=== PATIENT | male | born 1990 | race Hispanic/Latino ===

== ENCOUNTER 2018-09-02 07:08 | Emergency (ER) | payer OTHER ==
[2018-09-02 07:52] LABS: Absolute Lymphocytes (CBC) 1.4 K/uL (0.7-4.9); Absolute Monocytes 0.4 K/uL (0.1-1.3); Basophils % 0.5 % (0-1.3); Eosinophils % 1.9 % (0-4.4); Hematocrit 44.8 % (39.6-49.0); MPV 9.9 fL (7.6-11.3); RBC Red Blood Cell Count 4.62 M/uL (4.33-5.43)
[2018-09-02] MEDS ORDERED: MAGNE/ALUM HYDROXD 30 ML UCUP ONE (08:01)
[2018-09-02] MEDS ORDERED: FAMOTIDINE 20 MG/2 ML VIAL IV ONE (08:01)
[2018-09-02] MEDS ORDERED: LIDOCAINE VISCOUS 2% SOLN 15 ML UDC ONE (08:01)
[2018-09-02 08:12] LABS: Albumin 4.1 g/dL (3.4-5.0); Bilirubin Direct 0.1 mg/dL (0-0.2); Bilirubin Total 0.4 mg/dL (0.2-1.0); Potassium 3.8 mmol/L (3.5-5.1); Protein, Total 7.6 g/dL (6.4-8.2)
--- NOTE | 2018-09-02 08:33 | ER ---
Nurse's Notes [facility] Name: Daniele Harris Age: 28 yrs Sex: Male : 1990 Arrival Date: 09/02/2018 Time: 07:11 Bed 20 Private MD: Diagnosis: Upper abdominal pain, unspecified Presentation: 09/02 07:28 Presenting complaint: Intermittent upper abdominal pain x 1 week. Transition of care: hb patient was not received from another setting of care. Onset of symptoms was September 02, 2018. Risk Assessment: Do you want to hurt yourself or someone else? Patient reports no desire to harm self or others. Initial Sepsis Screen: Does the patient meet any 2 criteria? No. Patient's initial sepsis screen is negative. Does the patient have a suspected source of infection? No. Patient's initial sepsis screen is negative. Care prior to arrival: None. 07:28 Method Of Arrival: Ambulatory 07:28 Acuity: JANEL 3 hb Historical: - Allergies: 07:29 No Known Allergies; hb - Home Meds: 07:29 None [Active]; hb - PMHx: 07:29 None; hb - PSHx: 07:29 None; hb - Immunization history:: Adult Immunizations up to date. - Social history:: Smoking status: Patient uses tobacco products, smokes one-half pack cigarettes per day. - Ebola Screening: : No symptoms or risks identified at this time. Screenin:29 Abuse screen: Denies threats or abuse. Denies injuries from another. Nutritional hb screening: No deficits noted. Tuberculosis screening: No symptoms or risk factors identified. Fall Risk None identified. Assessment: 07:34 General: Appears in no apparent distress. comfortable, Behavior is calm, cooperative. em Pain: Complains of pain in epigastric area, right upper quadrant and left upper quadrant Pain currently is 4 out of 10 on a pain scale. Pain began 1 week Is intermittent. Neuro: Level of Consciousness is awake, alert, obeys commands, Oriented to person, place, time, situation. Cardiovascular: Capillary refill < 3 seconds Patient's skin is warm and dry. Respiratory: Airway is patent Respiratory effort is even, unlabored, Respiratory pattern is regular, symmetrical. GI: Abdomen is flat, Bowel sounds present X 4 quads. Abd is soft X 4 quads Abdomen is tender to palpation in epigastric area, right upper quadrant and left upper quadrant Patient currently denies diarrhea, nausea, vomiting. : No signs and/or symptoms were reported regarding the genitourinary system. EENT: No signs and/or symptoms were reported regarding the EENT system. Derm: Skin is intact, is healthy with good turgor, Skin is pink, warm \T\ dry. Musculoskeletal: Range of motion: intact in all extremities. 08:36 Reassessment: Patient appears in no apparent distress at this time. Patient and/or em family updated on plan of care and expected duration. Pain level reassessed. Patient is alert, oriented x 3, equal unlabored respirations, skin warm/dry/pink. pain is unchanged, provider at bedside, new medication orders received. 09:06 Reassessment: Patient appears in no apparent distress at this time. Patient and/or em family updated on plan of care and expected duration. Pain level reassessed. Patient is alert, oriented x 3, equal unlabored respirations, skin warm/dry/pink. rates pain 2/10 Patient states feeling better. Vital Signs: 07:27 BP 151 / 97; Pulse 73; Resp 16; Temp 98.6; Pulse Ox 100% on R/A; Pain 4/10; hb 08:35 BP 136 / 103; Pulse 70; Resp 18; Pulse Ox 100% on R/A; Pain 4/10; em ED Course: 07:11 Patient arrived in ED. mr 07:11 Yolande Delacruz [facility]-C [facility]. kb 07:11 Sam Vazquez MD is Attending Physician. kb 07:28 Triage completed. hb 07:28 Arm band placed on. hb 07:31 Philip Correa LVN is Primary Nurse. em 07:44 Patient has correct armband on for positive identification. Bed in low position. Call em light in reach. Pulse ox on. NIBP on. 07:44 Initial lab(s) drawn, by me, sent to lab. Inserted saline lock: 20 gauge in right em antecubital area, using aseptic technique. Blood collected. 09:06 No provider procedures requiring assistance completed. IV discontinued, intact, em bleeding controlled, No redness/swelling at site. Pressure dressing applied. Administered Medications: 07:55 Drug: GI Cocktail without - (Maalox Suspension 30 ml, Lidocaine Liquid 2 % 15 em ml) Route: PO; 08:35 Follow up: Response: No adverse reaction; Pain is unchanged, physician notified em 07:56 Drug: Pepcid 20 mg Route: IVP; Site: right antecubital; hb 08:35 Follow up: Response: No adverse reaction; Pain is unchanged, physician notified em 08:40 Drug: Bentyl 20 mg Route: PO; em 09:08 Follow up: Response: No adverse reaction; Pain is decreased em 08:40 Drug: TORadol 30 mg Route: IVP; Site: right antecubital; hb 09:08 Follow up: Response: No adverse reaction; Pain is decreased em Outcome: 08:33 Discharge ordered by . kb 09:06 Discharged to home ambulatory, with family. em 09:06 Condition: good 09:06 Discharge instructions given to patient, family, Instructed on discharge instructions, follow up and referral plans. medication usage, Demonstrated understanding of instructions, follow-up care, medications, Prescriptions given X 2. 09:08 Patient left the ED. em Signatures: Yolande Delacruz, TERI-C TERI-Mary Knight Edgar, DIRECTOR DIABETES DIRECTOR DIABETES em Grace Lr, RN RN
--- NOTE | 2018-09-02 08:33 | EDPHYS ---
Physician Documentation [facility] Name: Daniele Harris Age: 28 yrs Sex: Male : 1990 Arrival Date: 09/02/2018 Time: 07:11 Bed 20 Private MD: ED Physician Sam Vazquez HPI: 09/02 07:35 This 28 yrs old Male presents to ER via Ambulatory with complaints of kb Abdominal Pain. 07:35 The patient presents with abdominal pain in the upper abdomen. Onset: The kb symptoms/episode began/occurred 1 week(s) ago. The symptoms do not radiate. Associated signs and symptoms: Pertinent positives: nausea and vomiting, Pertinent negatives: anorexia, blood in stools, chest pain, constipation, diarrhea, dysuria, fever, headache, hematuria, palpitations, shortness of breath, testicular pain, vomiting blood. The symptoms are described as burning, intermittent. Modifying factors: The symptoms are alleviated by nothing, the symptoms are aggravated by nothing. Severity of pain: At its worst the pain was moderate in the emergency department the pain is unchanged. The patient has not experienced similar symptoms in the past. The patient has not recently seen a physician. PT reports intermittent abd burning for one week, came in today because the pain has been constant for 24 hours and he couldn't really sleep last night. States he only have "the regular vomiting from drinking." Denies nausea and vomiting when not drinking alcohol. Historical: - Allergies: 07:29 No Known Allergies; hb - Home Meds: 07:29 None [Active]; hb - PMHx: 07:29 None; hb - PSHx: 07:29 None; hb - Immunization history:: Adult Immunizations up to date. - Social history:: Smoking status: Patient uses tobacco products, smokes one-half pack cigarettes per day. - Ebola Screening: : No symptoms or risks identified at this time. ROS: 07:35 Constitutional: Negative for fever, chills, and weight loss, ENT: Negative for injury, kb pain, and discharge, Neck: Negative for injury, pain, and swelling, Cardiovascular: Negative for chest pain, palpitations, and edema, Respiratory: Negative for shortness of breath, cough, wheezing, and pleuritic chest pain, Back: Negative for injury and pain, : Negative for injury, bleeding, discharge, and swelling, MS/Extremity: Negative for injury and deformity, Skin: Negative for injury, rash, and discoloration, Neuro: Negative for headache, weakness, numbness, tingling, and seizure. 07:35 Abdomen/GI: Positive for abdominal pain, vomiting, Negative for diarrhea, constipation, abdominal cramps, abdominal distension, anorexia. Exam: 07:35 Constitutional: This is a well developed, well nourished patient who is awake, alert, kb and in no acute distress. Head/Face: Normocephalic, atraumatic. ENT: Nares patent. No nasal discharge, no septal abnormalities noted. Tympanic membranes are normal and external auditory canals are clear. Oropharynx with no redness, swelling, or masses, exudates, or evidence of obstruction, uvula midline. Mucous membranes moist. Neck: Trachea midline, no thyromegaly or masses palpated, and no cervical lymphadenopathy. Supple, full range of motion without nuchal rigidity, or vertebral point tenderness. No Meningismus. Chest/axilla: Normal chest wall appearance and motion. Nontender with no deformity. No lesions are appreciated. Cardiovascular: Regular rate and rhythm with a normal S1 and S2. No gallops, murmurs, or rubs. Normal PMI, no JVD. No pulse deficits. Respiratory: Lungs have equal breath sounds bilaterally, clear to auscultation and percussion. No rales, rhonchi or wheezes noted. No increased work of breathing, no retractions or nasal flaring. Abdomen/GI: Soft, non-tender, with normal bowel sounds. No distension or tympany. No guarding or rebound. No evidence of tenderness throughout. Back: No spinal tenderness. No costovertebral tenderness. Full range of motion. Skin: Warm, dry with normal turgor. Normal color with no rashes, no lesions, and no evidence of cellulitis. MS/ Extremity: Pulses equal, no cyanosis. Neurovascular intact. Full, normal range of motion. Neuro: Awake and alert, GCS 15, oriented to person, place, time, and situation. Cranial nerves II-XII grossly intact. Motor strength 5/5 in all extremities. Sensory grossly intact. Cerebellar exam normal. Normal gait. Vital Signs: 07:27 BP 151 / 97; Pulse 73; Resp 16; Temp 98.6; Pulse Ox 100% on R/A; Pain 4/10; hb 08:35 BP 136 / 103; Pulse 70; Resp 18; Pulse Ox 100% on R/A; Pain 4/10; em MDM: 07:23 Patient medically screened. gretta 07:35 Data reviewed: vital signs, nurses notes. Data interpreted: Pulse oximetry: on room air kb is 100 %. Interpretation: normal. 08:30 Counseling: I had a detailed discussion with the patient and/or guardian regarding: the kb historical points, exam findings, and any diagnostic results supporting the discharge/admit diagnosis, lab results, the need for outpatient follow up, a family practitioner, a automobile parker, to return to the emergency department if symptoms worsen or persist or if there are any questions or concerns that arise at home. 09/02 07:27 Order name: Hepatic Function kb 09/02 07:27 Order name: Basic Metabolic Panel kb 09/02 07:27 Order name: CBC with Diff kb 09/02 07:27 Order name: Lipase kb 09/02 08:01 Order name: CBC with Automated Diff; Complete Time: 08:43 EDMS 09/02 08:12 Order name: Basic Metabolic Panel; Complete Time: 08:14 EDMS 09/02 07:27 Order name: IV Saline Lock; Complete Time: 07:44 kb 09/02 08:12 Order name: Liver (Hepatic) Function; Complete Time: 08:14 EDMS 09/02 08:12 Order name: Lipase; Complete Time: 08:14 EDMS 09/02 08:37 Order name: CBC Smear Scan; Complete Time: 08:43 EDMS 09/02 07:27 Order name: Labs collected and sent; Complete Time: 07:44 kb Administered Medications: 07:55 Drug: GI Cocktail without - (Maalox Suspension 30 ml, Lidocaine Liquid 2 % 15 em ml) Route: PO; 08:35 Follow up: Response: No adverse reaction; Pain is unchanged, physician notified em 07:56 Drug: Pepcid 20 mg Route: IVP; Site: right antecubital; hb 08:35 Follow up: Response: No adverse reaction; Pain is unchanged, physician notified em 08:40 Drug: Bentyl 20 mg Route: PO; em 09:08 Follow up: Response: No adverse reaction; Pain is decreased em 08:40 Drug: TORadol 30 mg Route: IVP; Site: right antecubital; hb 09:08 Follow up: Response: No adverse reaction; Pain is decreased em Disposition: 09/03 07:47 Co-signature as Attending Physician, Sam Vazquez MD I agree with the assessment and gretta plan of care. Disposition: 09/02/18 08:33 Discharged to Home. Impression: Upper abdominal pain, unspecified. - Condition is Stable. - Discharge Instructions: Abdominal Pain, Adult, [id number]. - Prescriptions for Bentyl 20 mg Oral Tablet - take 1 tablet by ORAL route every 6 hours As needed; 20 tablet. Zofran 4 mg Oral Tablet - take 1 tablet by ORAL route every 6 hours As needed; 20 tablet. - Medication Reconciliation Form, Thank You Letter, Antibiotic Education, Prescription Opioid Use form. - Follow up: Emergency Department; When: As needed; Reason: Worsening of condition. Follow up: Private Physician; When: 2 - 3 days; Reason: Recheck today's complaints, Continuance of care, Re-evaluation by your physician. Signatures: Dispatcher [employer] EDYolande Aparicio, COLLAR SETTER-C COLLAR SETTER-Ckb Sam Vazquez MD MD cha Munoz, Edgar, LIFE SKILLS TRAINER LIFE SKILLS TRAINER em Grace Lr, RN RN hb Corrections: (The following items were deleted from the chart) 09/02 09:08 08:33 09/02/2018 08:33 Discharged to Home. Impression: Upper abdominal pain, em unspecified. Condition is Stable. Forms are Medication Reconciliation Form, Thank You Letter, Antibiotic Education, Prescription Opioid Use. Follow up: Emergency Department; When: As needed; Reason: Worsening of condition. Follow up: Private Physician; When: 2 - 3 days; Reason: Recheck today's complaints, Continuance of care, Re-evaluation by your physician. kb
[2018-09-02 08:37] LABS: Blood Morphology Comment NOT SEEN (NOT SEEN); Platelet Estimate ADEQ; Platelets, Giant PRESENT; Urine White Blood Cell Casts SCAN
[2018-09-02] MEDS ORDERED: KETOROLAC 30 MG/ML INJ ONE (08:38)
[2018-09-02] MEDS ORDERED: DICYCLOMINE HCL 10 MG CAP ONE (08:42)
== END 2018-09-02 09:08 | disposition home or self-care (01) ==
LOC: ER 07:08
DX: R10.10 Upper abdominal pain, unspecified (principal); R11.2 Nausea with vomiting, unspecified; F17.210 Nicotine dependence, cigarettes, uncomplicated
CPT/HCPCS: 36415; 80048; 80076; 83690; 85025; 96374; 96375; 99284

== ENCOUNTER → 2023-09-03 | Emergency (ER) | payer SELFPAY ==
[~2023-09-03] MED LIST: NA CHLORIDE 0.9% 1,000 ML ONE; POTASSIUM 25 MEQ EFFERV TAB ONE
--- OUTSIDE RECORDS SUMMARY | 2023-09-03 20:54 | XMS REPORT | Continuity of Care Document ---
Author Name Unknown Address [address] [facility] [address] [place] [address] [facility] thconnect Address [address] [facility] [address] [place] [address] Care Team Providers Care Tab Cutter Name Role Phone PCP, PATIENT DOES NOT HAVE A Primary Care Physic lucian Unavailable ROSA ISELA TONY Attending Clinician Unavailable Rosa Isela Tony NP Attending Clinician [phone] ROSA ISELA TONY Admitting Clinician Unavailable Allergies, Adverse Reactions, Alerts Allergy Name Allergy Type Status Severity Reaction(s) Onset Date Inactive Date Treating Clinician Comments Source NO KNOWN ALLERGIE S Drug Class Active [facility] Social History Social Habit Start Date Stop Date Quantity Comments Source Sexual orientation U [facility] Sex Assigned At 1990 00:00:00 1990 00:00:00 [facility] Smoking Status Start Date Stop Date Source Tobacco smoking consumption unknown [facility] Medications Ordered Medication Name Filled Medication Name Start Date Stop Date Current Medication? Ordering Clinician Indication Dosage Frequency Signature (SIG) Comments Components Source levoFLOXaci n (LEVAQUIN) tablet 750 mg 2022-07 02:15: 00 06-12 01:32 :00 No 750mg 750 mg, Oral, ONCE NOW, 1 dose, On 06/11/23 at 2015, CARL
Re ason for Anti-Infec tive: Documented Infection< br>Documen arnol Infection Site: Respirator y
Durat ion of Therapy: Other (see Comments) [facility] methylPREDN ISolone sodium succinate (SOLU-MEDRO L) injection 125 mg 2022-07 00:00: 00 Yes 125mg 125 mg, Intravenou s, Q6H, First dose on Mon06/11/23 at 1800, Until Discontinu ed, Routine [facility] ipratropium -albuteroL (DUONEB) 0.5 mg-3 mg(2.5 mg base)/3 mL nebulizer solution 3 mL 2022-07 00:00: 00 06-12 00:29 :00 No 3mL 3 mL, Inhalation , ONCE NOW, 1 dose, On Mon06/11/23 at 1800, Routine [facility] albuterol 90 mcg/actuati on inhaler 2022-07 00:00: 00 Yes [id number] 2{puff} Inhale 2 Puffs every 4 (four) hours as needed for Wheezing or Shortness of Breath. [facility] benzonatate 100 mg capsule 2022-07 00:00: 00 Yes [id number] 200mg Take 2 capsules by mouth 3 (three) times daily as needed for Cough. [facility] levoFLOXaci n 750 mg tablet 2022-07 00:00: 00 06-19 05:59 :00 Yes [id number] 750mg Take 1 tablet by mouth every 24 (twenty-fo ur) hours for 7 days. [facility] predniSONE 20 mg tablet 2022-07 00:00: 00 06-17 05:59 :00 Yes [id number] 20mg Take 1 tablet by mouth in the morning and 1 tablet in the evening. Do all this for 5 days. [facility] Vital Signs Vital Name Observation Time Observation Value Comments S emerson Systolic blood pressure 2023-06-12 01:37:00 138 mm[Hg] [facility] Diastolic blood pressure 2023-06-12 01:37:00 101 mm[Hg] [place] [facility] Heart rate 2023-06-12 01:37:00 91 /min [facility] Body temperature 2023-06-12 01:37:00 36.72 Darlyn [facility] Respiratory rate 2023-06-12 01:37:00 23 /min [facility] Oxygen saturation in Arterial blood by Pulse oximetry 2023-06-12 01:37:00 97 /min [facility] Body height 2023-06-11 23:01:00 180.3 cm [facility] Body weight 2023-06-11 23:01:00 98.431 kg [facility] BMI 2023-06-11 23:01:00 30.27 kg/m2 [facility] Procedures Procedure Date / Time Performed Performing Clinicia n Source EKG-12 LEAD 2023-06-12 01:35:02 Rosa Isela Tony [facility] LIPASE 2023-06-11 23:43:00 Rosa Isela Tony [facility] MAGNESIUM 2023-06-11 23:43:00 Rosa Isela Tony [facility] TROPONIN I 2023-06-11 23:43:00 Rosa Isela Tony [facility] COMP. METABOLIC PANEL ([id number]) 2023-06-11 23:43:00 Rosa Isela Tony [facility] CBC WITH DIFF 2023-06-11 23:43:00 Rosa Isela Tony [facility] RAPID INFLUENZA A/B 2023-06-11 23:43:00 Rosa Isela Tony [facility] N-TERMINAL PRO-BNP 2023-06-11 23:43:00 Rosa Isela Tony [facility] COVID-19 (ID NOW RAPID TESTING) 2023-06-11 23:43:00 Rosa Isela Tony [facility] ASSIGNMENT OF BENEFITS 2023-06-11 23:29:51 Docto r Unassigned, Laurier [facility] XR CHEST 1 VW 2023-06-11 23:17:00 Rosa Isela Tony [facility] NOTICE OF PRIVACY PRACTICES 2023-06-11 22:48:12 Doctor Unassigned, Laurier [facility] Encounters Start Date/Time End Date/Time Encounter Type Admission Type Attending Clinicians Care Facility Care Department Encounter ID Source 2023-06-11 17:03:00 2023-06-11 19:40:00 Emergency X ROSA ISELA TONY [facility] ERT [id number] [facility] 2023-06-11 17:03:00 2023-06-11 19:40:00 Emergency Rosa Isela Tony [facility] [id number] [facility] Results Test Description Test Time Test Comments Results Result Co mments Source [id number] 00:23:59* Test Item Value Reference Range Interpretation Comme nts TROPONIN I (test code = 5196977106) 0.015 ng/mL <=0.034 SYLVIA (test code = SYLVIA) Reference (Normal) Range (defined by the 99th percentile reference limit): <= 0.034 ng/mL Note: Cardiac troponin begins to rise 3-4 hours after the onset of ischemia. Repeat in 4-6 hours if the sample was drawn within 3-4 hours of the onset of the symptom and found normal. Diagnosis of myocardial injury is made with acute changes in cTn concentrations with at least one serial sample above the 99th percentile upper reference limit (URL), taken together with the patient's clinical presentation. Biotin has been reported to cause a negative bias, interpret results relative to patient's use of biotin. Lab Interpretation (test code = 53682-2) [facility] (89325)2023-06-12 00:13:36* Test Item Value Reference Range Interpretation Comme nts NA (test code = 3341521350) 139 mmol/L 135-145 K (test code = 5315410218) 4.3 mmol/L 3.5-5.0 CL (test code = 4022659288) 102 mmol/L 98-108 CO2 TOTAL (test code = 5372608919) 29 mmol/L 23-31 AGAP (test code = 0413079609) 8 2-16 BUN (test code = 0713081060) 15 mg/dL 7-23 GLUCOSE (test code = 3955356374) 109 mg/dL 70-110 CREATININE (test code = 0021538600) 0.96 mg/dL 0.60-1.25 TOTAL BILI (test code = 8985052420) 0.7 mg/dL 0.1-1.1 CALCIUM (test code = 4949513839) 9.8 mg/dL 8.6-10.6 T PROTEIN (test code = 6549920123) 8.7 g/dL 6.3-8.2 H ALBUMIN (test code = 6174591042) 5.0 g/dL 3.5-5.0 ALK PHOS (test code = 7580197104) 90 U/L 34-122 ALTv (test code = 1742-6) 69 U/L 5-50 H AST(SGOT) (test code = 6804919868) 36 U/L 13-40 eGFR (test code = 20166-4) 107.0 mL/min/1.73m2 CKD-EPI eGFR (2020). Assuming creatinine has been stable day-to-day for at least three months, the eGFR indicates Category G1 (>= 90 mL/min/1.73 m2) Lab Interpretation (test code = 53759-1) [facility]normal [facility] 00:13:36* Test Item Value Reference Range Interpretation Comme nts MAGNESIUM (test code = 8633498111) 1.9 mg/dL 1.7-2.4 Lab Interpretation (test cod e = 57904-9) [facility] 00:13:16* Test Item Value Reference Range Interpretation Comme nts LIPASE (test code = 6896508642) 68 U/L 0-220 Lab Interpretation (test cod e = 09606-1) [facility] [id number] 00:00:35* Test Item Value Reference Range Interpretation Comme nts WBC (test code = 6690-2) 9.55 See_Comment [Automated messa ge] The system which generated this result transmitted reference range: 4.20 - 10.70 10*3/?L. The reference range was not used to interpret this result as normal/abnormal. RBC (test code = 789-8) 4.89 See_Comment [Automated messa ge] The system which generated this result transmitted reference range: 4.26 - 5.52 10*6/?L. The reference range was not used to interpret this result as normal/abnormal. HGB (test code = 718-7) 16.8 g/dL 12.2-16.4 H HCT (test code = 4544-3) 46.2 % 38.4-49.3 MCV (test code = 787-2) 94.5 fL 81.7-95.6 MCH (test code = 785-6) 34.4 pg 26.1-32.7 H MCHC (test code = 786-4) 36.4 g/dL 31.2-35.0 H RDW-SD (test code = 86298-6) 39.1 fL 38.5-51.6 RDW-CV (test code = 788-0) 11.4 % 12.1-15.4 L PLT (test code = 777-3) 244 See_Comment [Automated messa ge] The system which generated this result transmitted reference range: 150 - 328 10*3/?L. The reference range was not used to interpret this result as normal/abnormal. MPV (test code = 58264-4) 11.5 fL 9.8-13.0 NRBC/100 WBC (test code = 8082962761) 0.0 See_Comment [Automated [employer] ssage] The system which generated this result transmitted reference range: 0.0 - 10.0 /100 WBCs. The reference range was not used to interpret this result as normal/abnormal. NRBC x10^3 (test code = 1869837216) See_Comment [Automated GMIa ge] The system which generated this result transmitted reference range: 10*3/?L. The reference range was not used to interpret this result as normal/abnormal. GRAN MAT (NEUT) % (test code = 770-8) 54.1 % IMM GRAN % (test code = 6861690648) 0.20 % LYMPH % (test code = 736-9) 28.7 % MONO % (test code = 5905-5) 6.4 % EOS % (test code = 713-8) 9.7 % BASO % (test code = 706-2) 0.9 % GRAN MAT x10^3(ANC) (test code = 7302009028) 5.16 10*3/uL 1.99-6.95 IMM GRAN x10^3 (test code = 9306685879) 0.00-0.06 LYMPH x10^3 (test code = 731-0) 2.74 10*3/uL 1.09-3.23 MONO x10^3 (test code = 742-7) 0.61 10*3/uL 0.36-1.02 EOS x10^3 (test code = 711-2) 0.93 10*3/uL 0.06-0.53 H BASO x10^3 (test code = 704-7) 0.09 10*3/uL 0.01-0.09 Lab Interpretation (test code = 00677-1) [facility]normal [facility], [id number] 00:29:17* Test Item Value Reference Range Interpretation Comme nts HEPATITIS A IgM (test code = 12236) NON-REACTIVE NON-REACTIVE HEPATITIS B CORE IgM (test code = 4644) NON-REACTIVE NON-REACTIVE HEPATITIS B SURF AG (test code = 2739) NON-REACTIVE NON-REACTIVE HEPATITIS C ANTIBODY (test code = 4675) NON-REACTIVE NON-REACTIVE INTERPRETATION HEPATITIS A: (test code = 2552) (NOTE) Hepatitis A serology shows no evidence of acute hepatitis A. INTERPRETATION HEPATITIS B: (test code = 72384) (NOTE) Hepatitis B serology shows no evidence of acute hepatitis B andno indication of exposure to hepatitis B virus in the previous marty eight months. INTERPRETATION HEPATITIS C: (test code = 41577) (NOTE) Hepatitis C serology shows no evidence of exposure to hepatitisC virus at this time. It can take up to 12 months after exposure tothe hepatitis C virus for antibodies to become detectable in the blood in certain patients. HIV 1/2 4TH GEN, RFLX [id number] 00:29:17* Test Item Value Reference Range Interpretation Comme nts HIV 1/2 4TH GEN, RFLX CONF ( test code = 3514) NON-REACTIVE NON-REACTIVE [id number] 00:12:48* Test Item Value Reference Range Interpretation Comme nts RPR RESULT (test code = 3501) NON-REACTIVE NON-REACTIVE RPR TITER (test code = 3500) NOT INDIC. TITER NOT INDIC. CT/NG, NAAT, [id number] 16:51:40* Test Item Value Reference Range Interpretation Comme nts GONORRHEA, NAAT (test code = 58698) NEGATIVE NEGATIVE IMPORTANT NO LAKISHA: SEE ANNOUNCEMENT AT [email or web address] Note: Assay methodology is nucleic acid amplification by newborn hearing screener mediated amplification (TMA) utilizing the Aptima Combo 2 Assay. CHLAMYDIA, NAAT (test code = 24180) NEGATIVE NEGATIVE IMPORTANT NO LAKISHA: SEE ANNOUNCEMENT AT [email or web address] Note: Assay methodology is nucleic acid amplification by newborn hearing screener mediated amplification (TMA) utilizing the Aptima Combo 2 Assay. UNLESS OTHERWISE INDICATED, ALL TESTING PERFORMED [facility] [address] [place] [address] CHARGE MASTER ANALYST: RASHAWN AARON M.D. [place] NUMBER [id number] [facility] [place]. [id number]
[2023-09-03 22:39] LABS: Absolute Lymphocytes (CBC) 1.9 K/uL (0.7-4.9); Hematocrit 42.1 % (39.6-49.0); Lymphocytes % 28.8 % (15.3-44.8); MCV 96.4 fL (80-100); MPV 9.7 fL (7.6-11.3); Platelets 234 thou/uL (152-406); RBC Red Blood Cell Count 4.37 M/uL (4.33-5.43)
[2023-09-03 23:02] LABS: Barbiturates NEGATIVE (NEGATIVE); Benzodiazepines NEGATIVE (NEGATIVE); Cocaine NEGATIVE (NEGATIVE); METHAMPHETAM POSITIVE (NEGATIVE); Methadone NEGATIVE (NEGATIVE); Opiates NEGATIVE (NEGATIVE); Phencyclidine NEGATIVE (NEGATIVE); THC Cannibis POSITIVE (NEGATIVE)
[2023-09-03 23:05] LABS: Protime INR 0.97
[2023-09-03 23:09] LABS: Specific Gravity 1.025 (1.005-1.030); Urine Bacteria None Seen /HPF (<20); Urine Bilirubin NEGATIVE (Negative); Urine Blood Negative (Negative); Urine Clarity Clear (Clear); Urine Color Light-Yellow (Yellow); Urine Glucose NEGATIVE (Negative); Urine Protein TRACE (Negative); Urine RBC <5 /HPF (None Seen); Urine Urobilinogen Normal (Normal); Urine pH 7.5 (5.0-7.0)
[2023-09-03 23:11] LABS: ALT/SGPT 61 U/L (16-61); AST/SGOT 26 U/L (15-37); Albumin 4.3 g/dL (3.4-5.0); Alkaline Phosphatase 54 U/L (45-117); BUN Blood Urea Nitrogen 12 mg/dL (7-18); Bicarbonate 27 mEq/L (21-32); Bilirubin Direct 0.1 mg/dL (0-0.2); Bilirubin Indirect, Calculated 0.4 mg/dL (0.2-0.8); Bilirubin Total 0.5 mg/dL (0.2-1.0); Glomerular Filtration Rate 94 ml/min (=/>90); Glucose Level 106 mg/dL (74-106); Potassium 3.3 mEq/L (3.5-5.1); Protein, Total 8.1 g/dL (6.4-8.2); Sodium Level 138 mEq/L (136-145)
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
[2023-09-04 02:31] VITALS: BP 170/101; O2SAT 99
[2023-09-04 02:32] VITALS: TEMP 99
--- NOTE | 2023-09-04 14:28 | EKG ---
Test Date: 2023-09-03 Test Time: 23:23:56 Job Placement Specialist: SAWYER MEASUREMENT RESULTS: Intervals: Rate: 95 MA: 144 QRSD: 92 QT: 354 QTc: 444 Venus: P: 43 MA: 144 QRS: 58 T: -25 INTERPRETIVE STATEMENTS: Normal sinus rhythm T wave abnormality, consider inferior ischemia Abnormal ECG No previous ECG available for comparison Electronically Signed On 09-04-23 14:26:05 [employer] LEARNING TEACHER by Rudy Trujillo
== END ==
LOC: ER 20:51
DX: R00.2 Palpitations (principal); T43.625A Adverse effect of amphetamines, initial encounter; E87.6 Hypokalemia; Z28.310 Unvaccinated for COVID-19
CPT/HCPCS: 36415; 80048; 80076; 80143; 80179; 80307; 81001; 82077; 85025; 85610; 85730; 93005; 96360; 99285; J7030

== ENCOUNTER 2024-05-06 22:47 | Emergency (ER) | payer SELFPAY ==
--- OUTSIDE RECORDS SUMMARY | 2024-05-06 22:50 | XMS REPORT | Continuity of Care Document ---
Author Name Unknown Address [address] [facility] [address] [place] [address] [facility] thconnect Address [address] [facility]. [address] [place] [address] Care Team Providers Care Supervisor White Sugar Name Role Phone Marisol Cruz Primary Care Physician THERESA TONY Attending Clinician Unavailable Theresa Tony NP Attending Clinician THERESA TONY Admitting Clinician Unavailable Allergies, Adverse Reactions, Alerts Allergy Name Allergy Type Status Severity Reaction(s) Onset Date Inactive Date Treating Clinician Comments Source Shrimp (Diagnos tic) - Injectio n Propensi ty to adverse reaction to drug Active 10-05 00:00: 00 Quoc Velasquez shrimp Propensi ty to adverse reaction to drug Inactiv e 2018-07 00:00: 00 Quoc Velasquez NO KNOWN ALLERGIE S Drug Class Active [facility] Social History Social Habit Start Date Stop Date Quantity Comments Source Sexual orientation U [facility] Sex Assigned At 1990 00:00:00 1990 00:00:00 [facility] Smoking Status Start Date Stop Date Source Tobacco smoking consumption unknown [facility] Medications Ordered Medication Name Filled Medication Name Start Date Stop Date Current Medication? Ordering Clinician Indication Dosage Frequency Signature (SIG) Comments Components Source pantoprazol e 40 mg tablet,maxine yed release 2023-07 0- 00:00: 00 Yes 1mg Quoc Velasquez ondansetron 4 mg disintegrat ing tablet 2023-07 0- 00:00: 00 Yes 1mg Quoc Velasquez levoFLOXaci n (LEVAQUIN) tablet 750 mg 2022-07 02:15: 00 06-12 01:32 :00 No 750mg 750 mg, Oral, ONCE NOW, 1 dose, On Mon06/11/23 at 2015, CARL
Re ason for Anti-Infec tive: Documented Infection< br>Documen arnol Infection Site: Respirator y
Durat ion of Therapy: Other (see Comments) [facility] methylPREDN ISolone sodium succinate (SOLU-MEDRO L) injection 125 mg 2022-07 00:00: 00 Yes 125mg 125 mg, Intravenou s, Q6H, First dose on Mon06/11/23 at 1800, Until Discontinu ed, Routine [facility] ipratropium -albuteroL (DUONEB) 0.5 mg-3 mg(2.5 mg base)/3 mL nebulizer solution 3 mL 2022-07 00:00: 00 06-12 00:29 :00 No 3mL 3 mL, Inhalation , ONCE NOW, 1 dose, On Mon06/11/23 at 1800, Routine [facility] albuterol 90 mcg/actuati on inhaler 2022-07 00:00: 00 Yes [id number] 2{puff} Inhale 2 Puffs every 4 (four) hours as needed for Wheezing or Shortness of Breath. [facility] benzonatate 100 mg capsule 2022-07 00:00: 00 Yes [id number] 200mg Take 2 capsules by mouth 3 (three) times daily as needed for Cough. [facility] levoFLOXaci n 750 mg tablet 2022-07 00:00: 00 06-19 05:59 :00 No [id number] 750mg Take 1 tablet by mouth every 24 (twenty-fo ur) hours for 7 days. [facility] predniSONE 20 mg tablet 2022-07 00:00: 00 06-17 05:59 :00 No [id number] 20mg Take 1 tablet by mouth in the morning and 1 tablet in the evening. Do all this for 5 days. [facility] Dose Unknown 4-02 00:00: 00 Yes Quoc Velasquez Dose Unknown 4-02 00:00: 00 Yes Quoc Velasquez Dose Unknown 3-31 00:00: 00 Yes Quoc Velasquez Dose Unknown 3-31 00:00: 00 Yes Quoc Velasquez Dose Unknown 3-30 00:00: 00 Yes Quoc Velasquez Dose Unknown 3-30 00:00: 00 Yes Quoc Velasquez Dose Unknown 3- 00:00: 00 Yes Quoc Velasquez Dose Unknown 3-29 00:00: 00 Yes Quoc Velasquez doxycycline hyclate 100 mg capsule 2020-07 2-15 00:00: 00 Yes 1mg Quoc Velasquez azithromyci n 500 mg tablet 9-06 00:00: 00 Yes 2mg Quoc Velasquez nystatin 100,000 unit/gram topical cream 24 00:00: 00 Yes 1unit/g levy Quoc Velasquez Bactrim DS 800 mg-160 mg tablet 2018-07 1- 00:00: 00 Yes 1mg uQoc Velasquez Vital Signs Vital Name Observation Time Observation Value Comments S ource Systolic blood pressure 2023-06-12 01:37:00 138 mm[Hg] [facility] Diastolic blood pressure 2023-06-12 01:37:00 101 mm[Hg] [facility] Heart rate 2023-06-12 01:37:00 91 /min [facility] Body temperature 2023-06-12 01:37:00 36.72 Darlyn [facility] Respiratory rate 2023-06-12 01:37:00 23 /min [facility] Oxygen saturation in Arterial blood by Pulse oximetry 2023-06-12 01:37:00 97 /min [facility] Body height 2023-06-11 23:01:00 180.3 cm [facility] Body weight 2023-06-11 23:01:00 98.431 kg [facility] BMI 2023-06-11 23:01:00 30.27 kg/m2 [facility] Body Temperature 2024-04-18 10:28:00 98.40 degrees Quoc F Ron Heart Rate 2024-04-18 10:28:00 77.00 /min Vale en F Ron Respiratory Rate 2024-04-18 10:28:00 17.00 /min Quoc F Ron BP Systolic 2024-04-18 10:28:00 135 mm[Hg] Step hen F Ron BP Diastolic 2024-04-18 10:28:00 98 mm[Hg] Rodney phen F Ron Weight Measured 2024-04-18 10:28:00 226.80 pounds Quoc F Ron Height Measured 2024-04-18 10:28:00 70.87 inches Quoc F Ron BP Systolic 2023-10-02 09:16:00 132 mm[Hg] Step hen F Ron BP Diastolic 2023-10-02 09:16:00 98 mm[Hg] Rodney phen F Ron Weight Measured 2023-10-02 09:16:00 222.40 pounds Quoc F Ron Height Measured 2023-10-02 09:16:00 70.87 inches Quoc F Ron Body Temperature 2023-10-02 09:16:00 98.30 degrees Quoc F Ron Heart Rate 2023-10-02 09:16:00 75.00 /min Vale en F Ron Respiratory Rate 2023-10-02 09:16:00 16.00 /min Quoc F Ron BP Systolic 2021-10-09 08:26:00 133 mm[Hg] Step hen F Ron BP Diastolic 2021-10-09 08:26:00 83 mm[Hg] Rodney phen F Ron Weight Measured 2021-10-09 08:26:00 206.80 pounds Quoc F Ron Height Measured 2021-10-09 08:26:00 70.87 inches Quoc F Ron Body Temperature 2021-10-09 08:26:00 97.40 degrees Quoc F Ron Heart Rate 2021-10-09 08:26:00 74.00 /min Vale en F Ron Respiratory Rate 2021-10-09 08:26:00 Quoc F Ron BP Systolic 2021-06-19 08:27:00 115 mm[Hg] Step hen F Ron BP Diastolic 2021-06-19 08:27:00 70 mm[Hg] Rodney phen F Ron Weight Measured 2021-06-19 08:27:00 201.60 pounds Quoc F Ron Height Measured 2021-06-19 08:27:00 70.87 inches Quoc F Ron Body Temperature 2021-06-19 08:27:00 98.20 degrees Quoc F Ron Heart Rate 2021-06-19 08:27:00 67.00 /min Vale en F Ron Respiratory Rate 2021-06-19 08:27:00 21.00 /min Quoc F Ron BP Systolic 2021-03-11 11:04:00 128 mm[Hg] Step hen F Ron BP Diastolic 2021-03-11 11:04:00 81 mm[Hg] Rodney phen F Ron Weight Measured 2021-03-11 11:04:00 196.80 pounds Quoc F Ron Height Measured 2021-03-11 11:04:00 70.87 inches Qouc F Ron Body Temperature 2021-03-11 11:04:00 98.60 degrees Quoc F Ron Heart Rate 2021-03-11 11:04:00 80.00 /min Vale en F Ron Respiratory Rate 2021-03-11 11:04:00 Quoc F Ron BP Systolic 2020-04-13 17:20:00 131 mm[Hg] Step hen F Ron BP Diastolic 2020-04-13 17:20:00 79 mm[Hg] Rodney phen F Ron Weight Measured 2020-04-13 17:20:00 205.60 pounds Quoc F Ron Height Measured 2020-04-13 17:20:00 71.00 inches Quoc F Ron Body Temperature 2020-04-13 17:20:00 98.20 degrees Quoc F Ron Heart Rate 2020-04-13 17:20:00 75.00 /min Vale en F Ron Respiratory Rate 2020-04-13 17:20:00 16.00 /min Quoc F Ron BP Systolic 2020-01-01 17:35:00 136 mm[Hg] Step hen F Ron BP Diastolic 2020-01-01 17:35:00 89 mm[Hg] Rodney phen F Ron Weight Measured 2020-01-01 17:35:00 197.60 pounds Uqoc F Ron Height Measured 2020-01-01 17:35:00 71.00 inches Quoc F Ron Body Temperature 2020-01-01 17:35:00 98.60 degrees Quoc Velasquez Heart Rate 2020-01-01 17:35:00 90.00 /min Vale Velasquez Respiratory Rate 2020-01-01 17:35:00 Quoc Velasquez Height Measured 2019-06-01 08:55:00 71.00 inches Quoc Velasquez Body Temperature 2019-06-01 08:55:00 98.50 degrees Quoc Velasquez Heart Rate 2019-06-01 08:55:00 78.00 /min Vale Velasquez Respiratory Rate 2019-06-01 08:55:00 Quoc Velasquez BP Systolic 2019-06-01 08:55:00 137 mm[Hg] Venkatesh Velasquez BP Diastolic 2019-06-01 08:55:00 86 mm[Hg] Rodney Velasquez Weight Measured 2019-06-01 08:55:00 190.20 pounds Quoc Velasquez Procedures Procedure Date / Time Performed Performing Clinicia n Source EKG-12 LEAD 2023-06-12 01:35:02 Theresa Tony [facility] LIPASE 2023-06-11 23:43:00 Theresa Tony [facility] MAGNESIUM 2023-06-11 23:43:00 Theresa Tony [facility] TROPONIN I 2023-06-11 23:43:00 Theresa Tony [facility] COMP. METABOLIC PANEL (04684) 2023-06-11 23:43:00 Theresa Tony [facility] CBC WITH DIFF 2023-06-11 23:43:00 Theresa [facility] RAP[facility] INFLUEN[facility] A/B 2023-06-11 23:43:00 Theresa Tony [facility] N-TERMINAL PRO-BNP 2023-06-11 23:43:00 Theresa Tony [facility] COVID-19 (ID NOW RAPID TESTING) 2023-06-11 23:43:00 Theresa Tony [facility] ASSIGNMENT OF BENEFITS 2023-06-11 23:29:51 Docto r Unassigned, [place] [facility] XR CHEST 1 VW 2023-06-11 23:17:00 Theresa Tony [facility] NOTICE OF PRIVACY PRACTICES 2023-06-11 22:48:12 Doctor Unassigned, [place] [facility] Encounters Start Date/Time End Date/Time Encounter Type Admission Type Attending [facility] Facility Care Department Encounter ID Source 2024-04-18 10:14:38 2024-04-18 10:14:38 Outpatient [facility] [id number] Quoc Velasquez 2024-04-18 00:00:00 2024-04-18 00:00:00 Outpatient Visit [facility] [id number] Quoc Velasquez 2023-10-02 09:15:21 2023-10-02 09:15:21 Outpatient S[facility] [id number] Quoc Velasquez 2023-06-11 17:03:00 2023-06-11 19:40:00 Emergency X THERESA TONY [facility] ERT [id number] [facility] 2023-06-11 17:03:00 2023-06-11 19:40:00 Emergency Theresa Tony [facility] [id number] [facility] Results Test Description Test Time Test Comments Results Result Co mments Source [facility] [id number] 00:23:59* Test Item Value Reference Range Interpretation Comme nts TROPONIN I (test code = 6067659240) 0.015 ng/mL <=0.034 SYLVIA (test code = [...] of biotin. Lab Interpretation (test code = 13085-5) Normal [facility] MET[facility]OLIC PANEL (43727)2023-06-12 00:13:36* Test Item Value Reference Range Interpretation Comme nts NA (test code = 9859617175) 139 mmol/L 135-145 K (test code = 7446590350) 4.3 mmol/L 3.5-5.0 CL (test code = 1066307568) 102 mmol/L 98-108 CO2 TOTAL (test code = 1215873372) 29 mmol/L 23-31 AGAP (test code = 2874142679) 8 2-16 BUN (test code = 2296139480) 15 mg/dL 7-23 GLUCOSE (test code = 1076550077) 109 mg/dL 70-110 CREATININE (test code = 5156635591) 0.96 mg/dL 0.60-1.25 TOTAL BILI (test code = 5772355276) 0.7 mg/dL 0.1-1.1 CALCIUM (test code = 5659319864) 9.8 mg/dL 8.6-10.6 T PROTEIN (test code = 9927230537) 8.7 g/dL 6.3-8.2 H ALBUMIN (test code = 4491626374) 5.0 g/dL 3.5-5.0 ALK PHOS (test code = 6638355943) 90 U/L 34-122 ALTv (test code = 1742-6) 69 U/L 5-50 H AST(SGOT) (test code = 4568046645) 36 U/L 13-40 eGFR (test code = 43937-7) 107.0 mL/min/1.73m2 CKD-EPI eGFR (2020). Assuming creatinine has been stable day-to-day for at least three months, the eGFR indicates Category G1 (>= 90 mL/min/1.73 m2) Lab Interpretation (test code = 38831-3) Abnormal [facility]2023-12-04 00:13:36* Test Item Value Reference Range Interpretation Comme nts MAGNESIUM (test code = 7979010950) 1.9 mg/dL 1.7-2.4 Lab Interpretation (test cod e = 64875-3) Normal [facility]2023-12-04 00:13:16* Test Item Value Reference Range Interpretation Comme nts LIPASE (test code = 3711259562) 68 U/L 0-220 Lab Interpretation (test cod e = 41193-5) Normal [facility] WITH [id number] 00:00:35* Test Item Value Reference Range Interpretation [...] g/dL 31.2-35.0 H RDW-SD (test code = 03729-5) 39.1 fL 38.5-51.6 RDW-CV (test code = 788-0) 11.4 % 12.1-15.4 L PLT (test code = 777-3) 244 See_Comment [Automated messa ge] The system which generated this result transmitted reference range: 150 - 328 10*3/?L. The reference range was not used to interpret this result as normal/abnormal. MPV (test code = 12692-1) 11.5 fL 9.8-13.0 NRBC/100 WBC (test code = 8793411328) 0.0 See_Comment [Automated me ssage] The system which generated this result transmitted reference range: 0.0 - 10.0 /100 WBCs. The reference range was not used to interpret this result as normal/abnormal. NRBC x10^3 (test code = 5172292770) See_Comment [Automated messa ge] The system which generated this result transmitted reference range: 10*3/?L. The reference range was not used to interpret this result as normal/abnormal. GRAN MAT (NEUT) % (test code = 770-8) 54.1 % IMM GRAN % (test code = 4207115751) 0.20 % LYMPH % (test code = 736-9) 28.7 % MONO % (test code = 5905-5) 6.4 % EOS % (test code = 713-8) 9.7 % BASO % (test code = 706-2) 0.9 % GRAN MAT x10^3(ANC) (test code = 3300960238) 5.16 10*3/uL 1.99-6.95 IMM GRAN x10^3 (test code = 8585847549) 0.00-0.06 LYMPH x10^3 (test code = 731-0) 2.74 10*3/uL 1.09-3.23 MONO x10^3 (test code = 742-7) 0.61 10*3/uL 0.36-1.02 EOS x10^3 (test code = 711-2) 0.93 10*3/uL 0.06-0.53 H BASO x10^3 (test code = 704-7) 0.09 10*3/uL 0.01-0.09 Lab Interpretation (test code = 96064-7) Abnormal [facility], [id number] 00:29:17* Test Item Value Reference Range Interpretation Comme nts HEPATITIS A IgM (test code = 73096) NON-REACTIVE NON-REACTIVE HEPATITIS B CORE IgM (test code = 4644) NON-REACTIVE NON-REACTIVE HEPATITIS B SURF AG (test code = 2739) NON-REACTIVE NON-REACTIVE HEPATITIS C ANTIBODY (test code = 4675) NON-REACTIVE NON-REACTIVE INTERPRETATION HEPATITIS A: (test code = 2552) (NOTE) Hepatitis A serology shows no evidence of acute hepatitis A. INTERPRETATION HEPATITIS B: (test code = 26276) (NOTE) Hepatitis B serology shows no evidence of acute hepatitis B andno indication of exposure to hepatitis B virus in the previous marty eight months. INTERPRETATION HEPATITIS C: (test code = 76188) (NOTE) Hepatitis C serology shows no evidence of exposure to hepatitisC virus at this time. It can take up to 12 months after exposure tothe hepatitis C virus for antibodies to become detectable in the blood in certain patients. HIV 1/2 4TH GEN, RFLX [id number] 00:29:17* Test Item Value Reference Range Interpretation Comme nts HIV 1/2 4TH GEN, RFLX CONF ( test code = 3514) NON-REACTIVE NON-REACTIVE [id number] 00:12:48* Test Item Value Reference Range Interpretation Comme nts RPR RESULT (test code = 3501) NON-REACTIVE NON-REACTIVE RPR TITER (test code = 3500) NOT INDIC. TITER NOT INDIC. ACUTE HEPATITIS [id number] 00:00:00* Test Item Value Reference Range Interpretation Comme nts HEPATITIS A IgM (test code = 51182) NON-REACTIVE HEPATITIS B CORE IgM (test c ode = 4644) NON-REACTIVE HEPATITIS B SURF AG (test co de = 2739) NON-REACTIVE HEPATITIS C ANTIBODY (test c ode = 4675) NON-REACTIVE INTERPRETATION HEPATITIS A: (test code = 2552) (NOTE) INTERPRETATION HEPATITIS B: (test code = 87648) (NOTE) INTERPRETATION HEPATITIS C: (test code = 95272) (NOTE) Quoc VelasquezHIV AB/AG COMBO RFLX [id number] 00:00:00* Test Item Value Reference Range Interpretation Comme nts HIV 1/2 4TH GEN, RFLX CONF ( test code = 3514) NON-REACTIVE Quoc Iverson [id number] 00:00:00* Test Item Value Reference Range Interpretation Comme nts RPR RESULT (test code = 3501) NON-REACTIVE RPR TITER (test code = 3500) NOT INDIC. TITER uQoc Iverson AustinCT/NG, NAAT, [id number] 16:51:40* Test Item Value Reference Range Interpretation Comme nts GONORRHEA, NAAT (test code = 42974) NEGATIVE NEGATIVE IMPORTANT NO LAKISHA: SEE ANNOUNCEMENT AT [email or web address] Note: Assay methodology is nucleic acid amplification by intervention analyst mediated amplification (TMA) utilizing the Aptima Combo 2 Assay. CHLAMYDIA, NAAT (test code = 10757) NEGATIVE NEGATIVE IMPORTANT NO LAKISHA: SEE ANNOUNCEMENT AT [email or web address] Note: Assay methodology is nucleic acid amplification by intervention analyst mediated amplification (TMA) utilizing the Aptima Combo 2 Assay. UNLESS OTHERWISE INDICATED, ALL TESTING PERFORMED [facility], [facility]. [address] [place] [address] MDS MANAGER: RASHAWN AARON M.D. CLIA NUMBER [id number] [facility] [place]. [id number] GC AND CHLAMYDIA, AMPLIFIED, [id number] 00:00:00* Test Item Value Reference Range Interpretation Comme nts GONORRHEA, NAAT (test code = 47512) NEGATIVE CHLAMYDIA, NAAT (test code = 52653) NEGATIVE Quoc VelasquezGC, AMPLIFIED, [id number] 00:00:00* Test Item Value Reference Range Interpretation Comme nts GONORRHEA, NAAT (test code = 93999) NEGATIVE Quoc VelasquezCHLAMYDIA, AMPLIFIED, [id number] 00:00:00* Test Item Value Reference Range Interpretation Comme nts CHLAMYDIA, NAAT (test code = 56485) POSITIVE Quoc VelasquezUNLABELLED SPECIMEN [ADDED]2021-06-20 00:00:00* Test Item Value Reference Range Interpretation Comme nts NOTE: (test code = 59298) Quoc VelasquezCULTURE, [id number] 00:00:00* Test Item Value Reference Range Interpretation Comme nts CULTURE, URINE (test code = 08786) SPECIMEN NUMBER: [id number] Quoc Iverson AustinCHLAMYDIA, AMPLIFIED, [id number] 00:00:00* Test Item Value Reference Range Interpretation Comme nts CHLAMYDIA, NAAT (test code = 19216) POSITIVE Quoc VelasquezGC, AMPLIFIED, [id number] 00:00:00* Test Item Value Reference Range Interpretation Comme nts GONORRHEA, NAAT (test code = 89789) NEGATIVE Quoc VelasquezCHLAMYDIA, AMPLIFIED, [id number] 00:00:00* Test Item Value Reference Range Interpretation Comme nts CHLAMYDIA, TMA (test code = 73491) NEGATIVE Quoc VelasquezGC, AMPLIFIED, [id number] 00:00:00* Test Item Value Reference Range Interpretation Comme nts GONORRHEA, TMA (test code = 60583) NEGATIVE Quoc VelasquezHIV AB/AG COMBO RFLX [id number] 00:00:00* Test Item Value Reference Range Interpretation Comme nts HIV 1/2 4TH GEN, RFLX CONF ( test code = 3514) NON-REACTIVE Quoc VelasquezACUTE HEPATITIS [id number] 00:00:00* Test Item Value Reference Range Interpretation Comme nts HEPATITIS A IgM (test code = 77653) NON-REACTIVE HEPATITIS B CORE IgM (test c ode = 4644) NON-REACTIVE HEPATITIS B SURF AG (test co de = 2739) NON-REACTIVE HEPATITIS C ANTIBODY (test c ode = 4675) NON-REACTIVE INTERPRETATION HEPATITIS A: (test code = 2552) (NOTE) INTERPRETATION HEPATITIS B: (test code = 65342) (NOTE) INTERPRETATION HEPATITIS C: (test code = 87546) (NOTE) Quoc [id number] 00:00:00* Test Item Value Reference Range Interpretation Comme nts RPR RESULT (test code = 3501) NON-REACTIVE RPR TITER (test code = 3500) NOT INDIC. TITER Quoc Lucas, AMPLIFIED, [id number] 00:00:00* Test Item Value Reference Range Interpretation Comme nts GONORRHEA, TMA (test code = 48374) NEGATIVE Quoc Zayra Ron Notes Date/Time Note Provider Source Quoc Velasquez [facility]
[2024-05-07] MEDS ORDERED: hydrOXYzine HCL 25 MG TAB ONE (00:03)
[2024-05-07] MEDS ORDERED: DIAZEPAM 10 MG/2 ML INJ SYRINGE ONE (00:03)
[2024-05-07 01:15] LABS: Absolute Basophils 0.1 K/uL (0-0.5); Absolute Eosinophils 0.2 K/uL (0-0.5); Absolute Lymphocytes (CBC) 2.5 K/uL (0.7-4.9); Absolute Monocytes 0.6 K/uL (0.1-1.3); Absolute Neutrophil 3.4 K/uL (1.8-8.0); Basophils % 0.8 % (0-1.3); Eosinophils % 2.7 % (0-4.4); Hematocrit 40.4 % (39.6-49.0); Hemoglobin 14.1 g/dL (13.6-17.9); Lymphocytes % 36.8 % (15.3-44.8); MCH 33.6 pg (27.0-35.0); MPV 10.1 fL (7.6-11.3); Monocytes % 8.3 % (3.3-12.3); Neutrophils % 51.4 % (41.7-73.7); Nucleated Red Blood Cells % 0.3 % (0-0); Platelets 213 thou/uL (152-406); Red Cell Distribution Width 12.1 % (12.1-15.2)
[2024-05-07 01:27] LABS: Anion Gap 7.7 mEq/L (5.0-15.0); Troponin High Sensitivity 15.6 pg/mL (<58.9)
[2024-05-07 01:28] LABS: Potassium 3.7 mEq/L (3.5-5.1); Thyroid Stimulating Hormone 5.13 uIU/mL (0.358-3.740)
--- NOTE | 2024-05-07 01:38 | EDPHYS ---
Physician Documentation [facility] Name: Daniele Harris Age: 34 yrs Sex: Male : 1990 Arrival Date: 05/06/2024 Time: 22:47 Bed 13 Private MD: ED Physician Ge Kan HPI: 05/06 23:40 This 34 yrs old Male presents to ER via Unassigned with complaints of Chest ec2 Pain, Anxiety. 23:40 Patient arrives today for evaluation of chest pain and concern for racing thoughts. He ec2 had an episode of chest pain yesterday as well as today, left-sided, no exertional component. Also reports feeling of racing thoughts. Patient reports no history of anxiety, no significant medical problems.. Historical: - Allergies: 23:45 No Known Allergies; vc1 - Home Meds: 23:45 None [Active]; vc1 - PMHx: 23:45 None; vc1 - PSHx: 23:45 None; vc1 - Immunization history:: Adult Immunizations up to date. - Infectious Disease History:: Denies. - Social history:: Smoking status: Reported history of juuling and/or vaping. ROS: 23:40 Constitutional: as per hpi ec2 Exam: 23:40 Constitutional: GEN: NAD Head: atraumatic Eyes: EOMI Ears: External ears are ec2 normal. CV: regular rate LUNGS: no respiratory distress ABD: non-distended SKIN: no evidence of rashes MSK: no evidence of trauma Vital Signs: 23:00 BP 148 / 96; Pulse 85; Resp 17; Pulse Ox 100% on R/A; rg5 23:16 BP 148 / 96; Pulse 95; Resp 17; Temp 98.6; Pulse Ox 98% ; vc1 05/07 00:00 BP 120 / 75; Pulse 76; Resp 17; Pulse Ox 100% on R/A; Pain 0/10; rg5 02:04 BP 124 / 89; Pulse 78; Resp 17; Temp 98; Pulse Ox 98% on R/A; Pain 0/10; rg5 05/07 00:00 Pain Scale: Adult rg5 02:04 Pain Scale: Adult rg5 MDM: 05/06 23:24 Medical Screening Exam initiated ec2 23:41 ED course: Patient arrives today d/t concern for chest pain and racing thoughts, exam ec2 remarkable for cooperative individual who is otherwise in no acute distress. will obtain labs, ekg/troponin, differential includes processes such as acs, arrhythmia, electrolyte disturbances, thyroid pathology. . 23:43 ED course: EKG independently reviewed and interpreted by me, shows sinus rhythm, rate ec2 of 87, no acute ST segment lesions, intervals nonactionable. . 05/07 01:07 ED course: Chest x-ray independently reviewed and interpreted by me, shows no acute ec2 intrathoracic process . 01:08 Data reviewed: vital signs. ec2 01:36 ED course: Labs are nonactionable. Will discharge home have patient follow-up with PCP. ec2 Return precautions given. 05/06 23:38 Order name: Basic Metabolic Panel; Complete Time: 01:30 ec2 05/06 23:38 Order name: CBC with Diff; Complete Time: 01:23 ec2 05/06 23:38 Order name: Troponin HS; Complete Time: 01:30 ec2 05/06 23:38 Order name: TSH; Complete Time: 01:30 ec2 05/06 23:38 Order name: T4 Free; Complete Time: 01:30 ec2 05/06 23:38 Order name: XRAY Chest (1 view) ec2 05/06 23:38 Order name: EKG; Complete Time: 23:39 ec2 05/06 23:38 Order name: Cardiac monitoring; Complete Time: 23:45 ec2 05/06 23:38 Order name: EKG - Nurse/Tech; Complete Time: 23:45 ec2 05/06 23:38 Order name: IV Saline Lock; Complete Time: 23:58 ec2 05/06 23:38 Order name: Labs collected and sent; Complete Time: 00:28 ec2 05/06 23:38 Order name: O2 Per Protocol; Complete Time: 23:54 ec2 05/06 23:38 Order name: O2 Sat Monitoring; Complete Time: 23:54 ec2 Administered Medications: 00:06 Drug: Diazepam IVP 5 mg IVP once Route: IVP; Site: left wrist; rg5 02:13 Follow up: Response: No adverse reaction rg5 00:06 Drug: hydrOXYzine PO 25 mg PO once Route: PO; rg5 02:13 Follow up: Response: No adverse reaction rg5 Disposition Summary: 05/07/24 01:37 Discharge Ordered Notes: Location: Home ec2 Condition: Stable ec2 Diagnosis - Chest pain, unspecified ec2 - Palpitations ec2 Followup: ec2 - With: Private Physician - When: - Reason: Re-evaluation by your physician Followup: ec2 - With: Lily Man MD - When: - Reason: Recheck today's complaints Discharge Instructions: - Discharge Summary Sheet ec2 - Nonspecific Chest Pain, Adult, Syax-vi-Eyst ec2 Forms: - Medication Reconciliation Form ec2 - Antibiotic Education ec2 - Prescription Opioid Use ec2 - Patient Portal Instructions ec2 - Leadership Thank You Letter ec2 Prescriptions: - Hydroxyzine HCl 25 mg Oral Tablet - take 1 tablet ORAL route every 6 hours As needed; 30 tablet; Refills: 0, ec2 Product Selection Permitted - Protonix 40 mg Oral Tablet - take 1 tablet ORAL route once daily; 30 tablet; Refills: 0, Product Selection ec2 Permitted Signatures: Dispatcher [employer] EDMS Joy Amador RN RN vc1 Ge Kan MD MD ec2 Miguel Hanks RN RN rg5 Corrections: (The following items were deleted from the chart) 05/06 23:39 23:38 BASIC METABOLIC PANEL+C.LAB.BRZ ordered. EDMS EDMS 23:39 23:38 CBC+H.LAB.BRZ ordered. EDMS EDMS 23:39 23:38 Troponin High Sensitivity+C.LAB.BRZ ordered. EDMS EDMS 23:39 23:38 THYROID STIMULAT HORMONE+C.LAB.BRZ ordered. EDMS EDMS 23:39 23:38 T4 FREE+C.LAB.BRZ ordered. EDMS EDMS 23:42 23:40 Constitutional: No acute distress ec2 ec2
--- NOTE | 2024-05-07 01:38 | ER ---
Nurse's Notes [facility] Name: Daniele Harris Age: 34 yrs Sex: Male : 1990 Arrival Date: 05/06/2024 Time: 22:47 Bed 13 Private MD: Diagnosis: Chest pain, unspecified;Palpitations Presentation: 05/06 23:16 Chief complaint: Chief complaint: Patient states: Started having chest pain last night vc1 that felt like something was stuck at the bottom of my throat. Tonight I felt my heart racing and some left sided chest pain. 23:16 Coronavirus screen: Client denies travel out of the [place] in the last 14 days. At this vc1 time, the client does not indicate any symptoms associated with coronavirus-19. Ebola Screen: Patient negative for fever greater than or equal to 101.5 degrees Fahrenheit, and additional compatible Ebola Virus Disease symptoms Patient denies exposure to infectious person. Patient denies travel to an Ebola-affected area in the 21 days before illness onset. No symptoms or risks identified at this time. Initial Sepsis Screen: Does the patient meet any 2 criteria? No. Patient's initial sepsis screen is negative. Does the patient have a suspected source of infection? No. Patient's initial sepsis screen is negative. Risk Assessment: Do you want to hurt yourself or someone else? Patient reports no desire to harm self or others. Onset of symptoms was May 06, 2024. 23:16 Method Of Arrival: Ambulatory vc1 23:16 Acuity: JANEL 4 vc1 Triage Assessment: 23:46 General: Appears in no apparent distress. uncomfortable, Behavior is cooperative, vc1 anxious. Pain: Complains of pain in anterior aspect of left upper chest Pain does not radiate. Pain currently is 2 out of 10 on a pain scale. EENT: No deficits noted. No signs and/or symptoms were reported regarding the EENT system. Neuro: Level of Consciousness is awake, alert, obeys commands, Oriented to person, place, time, situation, Appropriate for age. Cardiovascular: Reports chest pain, Capillary refill < 3 seconds Patient's skin is warm and dry. Cardiovascular: Chest pain is described as mild. Respiratory: Airway is patent Respiratory effort is even, unlabored, Respiratory pattern is regular, symmetrical. GI: No deficits noted. No signs and/or symptoms were reported involving the gastrointestinal system. : No deficits noted. No signs and/or symptoms were reported regarding the genitourinary system. Derm: Skin is intact, is healthy with good turgor, Skin is dry, Skin is normal. Musculoskeletal: Circulation, motion, and sensation intact. Range of motion: intact in all extremities. Historical: - Allergies: 23:45 No Known Allergies; vc1 - Home Meds: 23:45 None [Active]; vc1 - PMHx: 23:45 None; vc1 - PSHx: 23:45 None; vc1 - Immunization history:: Adult Immunizations up to date. - Infectious Disease History:: Denies. - Social history:: Smoking status: Reported history of juuling and/or vaping. Screenin:15 [facility] ED Fall Risk Assessment (Adult) History of falling in the last 3 months, rg5 including since admission No falls in past 3 months (0 pts) Confusion or Disorientation No (0 pts) Intoxicated or Sedated No (0 pts) Impaired Gait No (0 pts) Mobility Assist Device Used No (0 pt) Altered Elimination No (0 pt) Score/Fall Risk Level 0 - 2 = Low Risk Oriented to surroundings, Maintained a safe environment, Hourly rounding (assess needs \T\ fall precautionary measures) done. Abuse screen: Denies threats or abuse. Nutritional screening: No deficits noted. Tuberculosis screening: No symptoms or risk factors identified. Assessment: 23:15 General: Appears in no apparent distress. Behavior is calm, cooperative. rg5 23:15 Pain: Complains of pain in chest Pain currently is 8 out of 10 on a pain scale. Quality rg5 of pain is described as aching, Pain began 2 hours ago. Neuro: Level of Consciousness is awake, alert, obeys commands, Oriented to person, place, time. Cardiovascular: Heart tones S1 S2 Capillary refill < 3 seconds Patient's skin is warm and dry. Rhythm is sinus rhythm. Respiratory: Airway is patent Trachea midline Respiratory effort is even, unlabored. GI: Abdomen is round non-distended. GI: No signs and/or symptoms were reported involving the gastrointestinal system. : : No signs and/or symptoms were reported regarding the genitourinary system. EENT: No deficits noted. Derm: Skin is intact, Skin is dry, Skin is normal, Skin temperature is warm. Musculoskeletal: Circulation, motion, and sensation intact. Range of motion: intact in all extremities. Vital Signs: 23:00 BP 148 / 96; Pulse 85; Resp 17; Pulse Ox 100% on R/A; rg5 23:16 BP 148 / 96; Pulse 95; Resp 17; Temp 98.6; Pulse Ox 98% ; vc1 05/07 00:00 BP 120 / 75; Pulse 76; Resp 17; Pulse Ox 100% on R/A; Pain 0/10; rg5 02:04 BP 124 / 89; Pulse 78; Resp 17; Temp 98; Pulse Ox 98% on R/A; Pain 0/10; rg5 05/07 00:00 Pain Scale: Adult rg5 02:04 Pain Scale: Adult rg5 ED Course: 05/06 22:50 Patient arrived in ED. ra3 23:00 Ge Kan MD is Attending Physician. ec2 23:15 No provider procedures requiring assistance completed. Inserted saline lock: 20 gauge rg5 in right antecubital area, using aseptic technique. Blood collected. Flushed with 10 mL NS. Patient maintains SpO2 saturation greater than 95% on room air. 23:15 Patient has correct armband on for positive identification. Bed in low position. Call rg5 light in reach. Side rails up X 1. Client placed on continuous cardiac and pulse oximetry monitoring. NIBP monitoring applied. ekg monitor tech on. Pulse ox on. NIBP on. 23:23 Miguel Hanks, RN is Primary Nurse. rg5 23:44 Triage completed. vc1 23:44 EKG done, by ED staff, reviewed by Ge Kan MD. oe 23:46 Arm band placed on right wrist. vc1 05/07 00:21 XRAY Chest (1 view) In Process Unspecified. EDMS 01:37 Lily Man MD is Referral Physician. ec2 02:12 IV discontinued, bleeding controlled, No redness/swelling at site. Pressure dressing rg5 applied. 02:13 Provided Education on: post er care. rg5 Administered Medications: 00:06 Drug: Diazepam IVP 5 mg IVP once Route: IVP; Site: left wrist; rg5 02:13 Follow up: Response: No adverse reaction rg5 00:06 Drug: hydrOXYzine PO 25 mg PO once Route: PO; rg5 02:13 Follow up: Response: No adverse reaction rg5 Medication: 05/06 23:15 VIS not applicable for this client. rg5 Outcome: 05/07 01:37 Discharge ordered by . ec2 02:12 Discharged to home ambulatory, rg5 02:12 Condition: stable rg5 02:12 Discharge instructions given to patient, Instructed on discharge instructions, Demonstrated understanding of instructions, 02:12 Prescriptions given X 2, rg5 02:21 Patient left the ED. rg5 Signatures: Dispatcher [employer] EDHI Orlin Smalls Vanessa, RN RN vc1 Ge Kan MD MD ec2 Alva, Ruby ra3 Miguel Hanks, RN RN rg5 Corrections: (The following items were deleted from the chart) 05/06 23:44 23:26 Chief complaint: vc1 vc1
[2024-05-07 04:13] VITALS: BP 124/89; TEMP 98; O2SAT 98
--- NOTE | 2024-05-07 05:03 | RAD REPORT ---
T Due to temporary technical issues with the PACS/[employer] reporting system, reports are being sig yaneth by the in-house radiologist without review as a courtesy to ensure prompt reporting the interpreting radiologist is fully responsible for the content of the report. CHASE OF STUDY: 05/06/20 11:38 PM CDT REASON FOR EXAM: CHEST PAIN COMPARISON: None. FINDINGS: AP view of the chest was obtained, chest 1 view. Lungs: Normal lung volume. No mass, or consolidation. Normal pulmonary vascularity.. Pleura: No pneumothorax. There is no pleural effusion. Heart and Mediastinum: Normal cardiomediastinal silhouette and great vessels.. Bones: No acute bony abnormality.. IMPRESSION: 1. No acute cardiopulmonary process. Electronically signed by: Jani Mays MD 05/07/2024 12:58 AM CDT Transcribed Date/Time: 05/07/2024 5:03 AM
--- NOTE | 2024-05-08 14:52 | EKG ---
Test Date: 2024-05-06 Test Time: 23:40:56 Aviculturist: TIANA MEASUREMENT RESULTS: Intervals: Rate: 87 MT: 158 QRSD: 90 QT: 366 QTc: 440 [place]: P: 39 MT: 158 QRS: 15 T: 4 INTERPRETIVE STATEMENTS: Normal sinus rhythm Nonspecific T wave abnormality Abnormal ECG Compared to ECG 09/03/2023 23:23:56 Possible ischemia no longer present T-wave abnormality still present Electronically Signed On 05-08-24 14:47:03 CDT by Rudy Trujillo
== END 2024-05-07 02:21 | disposition home or self-care (01) ==
LOC: ER 22:47
DX: R07.9 Chest pain, unspecified (principal); R00.2 Palpitations
CPT/HCPCS: 36415; 71045; 80048; 84439; 84443; 84484; 85025; 93005; J3360